=== PATIENT | female | born 1990 | race Caucasian/White ===

== ENCOUNTER 2017-02-24 21:23 | Emergency (ER) | payer OTHER ==
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
[2017-02-24 23:04] VITALS: BP 98/53; PULSE 100; O2SAT 98
== END 2017-02-24 22:46 | disposition left against medical advice (07) ==
LOC: ED 21:23
DX: M79.671 Pain in right foot (principal); M25.571 Pain in right ankle and joints of right foot; R20.0 Anesthesia of skin
CPT/HCPCS: 99281